=== PATIENT | female | born 1945 | race Caucasian/White ===

== ENCOUNTER 2018-04-24 10:27 | Inpatient (IN) ==
[2018-04-20 19:23] LABS: Appearance,Urine CLEAR; Bilirubin,Urine NEG (NEG); Color,Urine YELLOW; Glucose,Urine (UA) NEGATIVE (NEG); Leukocyte Esterase,Urine NEG /uL (NEG); Protein,Urine NEG (NEG); Specific Gravity,Urine 1.014 (1.000-1.035); Urine Blood NEG mg/dL (<0.03); Urobilinogen,Urine NEG (NEG)
[2018-04-20 19:29] LABS: Blood Urea Nitrogen 14 mg/dl (8-23)
[2018-04-20 19:35] LABS: Basophils # (Auto) 0 K/mcL (0.0-0.3); Basophils % (Auto) 0.4 % (0.0-2.0); Eosinophils # (Auto) 0.2 K/mcL (0.0-0.7); Eosinophils % (Auto) 3.3 % (0.0-7.0); Granulocytes % (Auto) 72.9 % (38.0-78.0); Lymphocytes # (Auto) 0.8 K/mcL (1.5-4.8); Lymphocytes % (Auto) 14.6 % (15.5-49.0); Mean Cell Volume 94.3 fL (80.0-100.0); Mean Corpuscular HGB Conc 32.9 g/dL (31.0-36.0); Monocytes # (Auto) 0.5 K/mcL (0.1-0.9); Monocytes % (Auto) 8.8 % (1.0-12.0); Platelet Count 270 K/mcL (140-440); RBC 4.11 M/mcL (4.00-5.20); Red Cell Distribution Width 14.3 % (11.5-14.5)
--- NOTE | 2018-04-21 09:05 | XRay Report ---
HISTORY: Preop for shoulder surgery and status post right upper lobectomy FINDINGS: Right lung is smaller than the left following a prior right upper lobectomy. There is loculated pleural fluid over the right apex and there is blunting of the right costophrenic sulcus which could be residual fluid or scar. There is mild parenchymal scarring around the right hilum and above the right diaphragm. No pneumonia or tumor are seen. The left lung is clear normally expanded. The heart size is normal. There are two metal anchors in the right humeral head following prior shoulder surgery. There has been no significant change since 03/07/18. IMPRESSION: Normal postsurgical changes in the right thorax with residual loculated pleural fluid at the apex and possibly the right costophrenic sulcus No acute abnormality has developed Interpreted and Authenticated by: Fred Potter 04/21/18
[~2018-04-24 10:27] MED LIST: ACETAMINOPHEN 500 MG TABLET PO SCH; CELECOXIB 200 MG CAPSULE PO SCH; PREGABALIN 75 MG CAPSULE PO SCH; ceFAZolin 1 GM VIAL IV SCH; oxyCODONE 10 MG TAB.ER.12H PO SCH
[2018-04-24] MEDS ORDERED: TRANEXAMIC ACID 1,000 MG/10 ML VIAL IV ONE (12:38)
[2018-04-24] MEDS ORDERED: SUCCINYLCHOLINE 20 MG/ML ML IV ONE (12:38)
[2018-04-24] MEDS ORDERED: LIDOCAINE HCL/PF 100 MG/5 ML SYRINGE IV ONE (12:38)
[2018-04-24] MEDS ORDERED: DEXAMETHASONE 10 MG/ML VIAL IV ONE (12:38)
[2018-04-24] MEDS ORDERED: PROPOFOL 200 MG/20 ML VIAL IV ONE (12:38)
[2018-04-24] MEDS ORDERED: MIDAZOLAM 5 MG/5 ML VIAL IV ONE (12:38)
[2018-04-24] MEDS ORDERED: KETAMINE 100 MG/ML ML IV ONE (12:38)
[2018-04-24] MEDS ORDERED: fentaNYL 250 MCG/5 ML VIAL IV ONE (12:38)
[2018-04-24] MEDS ORDERED: IPRATROPIUM/ALBUTEROL 3 ML AMPUL.NEB NEB ONE (14:16)
[2018-04-24] MEDS ORDERED: GENTAMICIN SULFATE 800 MG/20 ML VIAL IR ONE (15:06)
[2018-04-24] MEDS ORDERED: diphenhydrAMINE 50 MG/ML VIAL IV PRN (15:34)
[2018-04-24] MEDS ORDERED: IPRATROPIUM/ALBUTEROL 3 ML AMPUL.NEB NEB PRN (15:34)
[2018-04-24] MEDS ORDERED: METHOCARBAMOL 1,000 MG/10 ML VIAL IV PRN (15:34)
[2018-04-24] MEDS ORDERED: PROMETHAZINE 25 MG/ML VIAL IV PRN (15:34)
[2018-04-24] MEDS ORDERED: METOPROLOL TARTRATE 5 MG/5 ML VIAL IV PRN (15:34)
[2018-04-24] MEDS ORDERED: ATROPINE SULFATE 0.4 MG/ML VIAL IV PRN (15:34)
[2018-04-24] MEDS ORDERED: FLUMAZENIL 0.1 MG/ML ML IV PRN (15:34)
[2018-04-24] MEDS ORDERED: ePHEDrine 50 MG/ML AMPUL IV PRN (15:34)
[2018-04-24] MEDS ORDERED: MEPERIDINE 25 MG/ML SYRINGE IV PRN (15:34)
[2018-04-24] MEDS ORDERED: ONDANSETRON 4 MG/2 ML VIAL IV PRN ×2 (15:34→15:51)
[2018-04-24] MEDS ORDERED: NALOXONE HCL 0.4 MG/ML VIAL IV PRN (15:34)
[2018-04-24] MEDS ORDERED: LACTATED RINGERS 1,000 ML IV SCH (15:45)
[2018-04-24] MEDS ORDERED: FLEETS ADULT ENEMA PR PRN (15:51)
[2018-04-24] MEDS ORDERED: POLYETHYLENE GLYCOL 3350 17 GM PACKET PO PRN (15:51)
[2018-04-24] MEDS ORDERED: MAGNESIUM HYDROXIDE 30 ML ORAL.SUSP PO PRN (15:51)
[2018-04-24] MEDS ORDERED: TRANEXAMIC ACID 1,000 MG/10 ML VIAL IV SCH (15:51)
[2018-04-24] MEDS ORDERED: BISACODYL 10 MG SUPP.RECT PR PRN (15:51)
[2018-04-24] MEDS ORDERED: BENZOCAINE/MENTHOL 1 LOZENGE PO PRN (15:51)
--- NOTE | 2018-04-24 15:51 | Brief Operative Note ---
Date of procedure: 04/24/18 Pre-op diagnosis: left shoulder massive rct and djd Post-op diagnosis: same Procedure: left reverse tsa and bicep tenodesis Grafts/Implants: Yes Anesthesia: GETA Complications: none Surgeon: Adam Handy Instructional Manager: Theodore Gutierrez Estimated blood loss (cc): 100 Specimens Removed/Pathology: none sent Condition: stable Disposition: PACU
[2018-04-24] MEDS ORDERED: ALBUTEROL SULFATE 1 PUFF INHALER INH PRN (15:53)
[2018-04-24] MEDS: fentaNYL 100 MCG/2 ML VIAL IV PRN ×4 (16:34→17:12)
--- NOTE | 2018-04-24 16:34 | Operative Note ---
DATE OF OPERATION: 04/24/2018 PREOPERATIVE DIAGNOSES: Left shoulder rotator cuff arthropathy with massive rotator cuff tear and arthritis and biceps tendinopathy. POSTOPERATIVE DIAGNOSES: Left shoulder rotator cuff arthropathy with massive rotator cuff tear and arthritis and biceps tendinopathy. PROCEDURE: Left reverse total shoulder and biceps tenodesis. SURGEON: Adam Handy M.D. INTELLECTUAL PROPERTY COUNSEL: Theodore Gutierrez PA-C. ANESTHESIA: General LMA anesthesia by Iram Sykes CRNA. COMPLICATIONS: None. ESTIMATED BLOOD LOSS: About 100 mL. IMPLANTS: A size 7 stem, a cementless stem with distal cementing of the distal stem because of bone quality. Metaglene and a 32 mm glenosphere. DESCRIPTION OF PROCEDURE: The patient was brought to the operating room and put to sleep with general LMA anesthesia. Once asleep, the patient had the left arm sterilely prepped and draped in the usual sterile fashion, confirmed as the operative site with a timeout. Tranexamic acid and preop antibiotics were given. Once this had been accomplished, we proceeded with the left reverse total shoulder. After the time out been performed, confirming the left arm as the site both by consent form, x-rays and initials on the skin. Once all this was done, we then placed Ioban on the skin. She was reclined in a beach chair position and made a deltopectoral approach. This was about a 4.5 inch incision. This was dissected to the deltopectoral interval, which was retracted laterally with the cephalic vein. Identified the conjoined tendon, retracted medially after elevating it from the anterior capsule and then released the subscap muscle. This was tagged and retracted medially, and at this point we identified the biceps tendon which was released from its remnants and then sutured to a bony bed and pectoralis major muscle with two [id number] #2 Ethibond stitches. The patient tolerated this well. We released any excess tissue proximally. Once this has been secured, then we subluxed the humeral head anteriorly, released the capsule around the inferior portion of the ball, and then made our neck cut at the anatomic area. Using 20 degrees of retroversion we then placed a protective plate, and this was subluxed posteriorly. We then placed a retractor superiorly and a glenoid retractor posteriorly, a Cobra retractor anteriorly, and we performed a 360-degree capsular release and labral release with the remnants of the biceps tendon. We placed the pin fairly centrally for the Metaglene, and the Metaglene was positioned and a 32 mm glenosphere was tapped into place. The central screw was only 24 mm. Peripheral screws were 32, 24, and 24 with good purchase of all screws. The glenosphere was placed, and it covered the bone nicely. We irrigated thoroughly and made sure there was no soft tissue stopping any of the motion. We irrigated thoroughly and then prepared the humeral side, broaching up to the size and reaming the canal up to the size of 7. The 8 was too large. We broached with a broach for a size 7, and this seemed to fit very nicely. We had to countersink slightly to get the tension perfectly right which was accomplished, and the shoulder was stable through the full arc of motion. We irrigated thoroughly and then mixed cement with antibiotics, and this was placed distally in the humerus for distal fixation of the stem proximally. The stem was kept porous ingrowth into the stem. This was placed, a standard thickness poly that would have been trialed. The final implant was placed, and this was reduced without any complication. Here again we retested the stability of the shoulder, very stable throughout. We irrigated and did not repair the subscap just because the tightness of the shoulder would have complicated this. We irrigated thoroughly and closed the interval with #1 Stratafix, closed the fascial layer with #1 Stratafix and adhesive closure superficially. The patient was fitted and given a DonJoy sling at the end of the case. [email or web address] Job ID: [id number] Doc ID: [id number] Adam Handy MD
[2018-04-24] MEDS: HYDROmorphone 2 MG/ML VIAL IV PRN ×2 (16:40→20:00)
[2018-04-24] MEDS ORDERED: DICYCLOMINE 20 MG TABLET PO PRN (17:00)
[2018-04-24] MEDS: 0.45 % SODIUM CHLORIDE 1,000 ML IV SCH (17:57)
--- NOTE | 2018-04-24 19:16 | XRay Report ---
CLINICAL INFORMATION: Post-Op Total Shoulder COMPARISON: None. FINDINGS: Total shoulder prosthesis is anatomically aligned. No osseous abnormality. Soft issue swelling as expected IMPRESSION: Negative Interpreted and Authenticated by: Alvaro Portillo 04/24/18
[2018-04-24] MEDS: HYDROCODONE/APAP 7.5/325MG TABLET PO PRN (20:00)
[2018-04-24] MEDS ORDERED: FAMOTIDINE 20 MG TABLET PO SCH (21:00)
[2018-04-24] MEDS ORDERED: MELATONIN 3 MG TABLET PO PRN (21:00)
[2018-04-24] MEDS ORDERED: ATORVASTATIN 20 MG TABLET PO SCH (21:00)
[2018-04-24] MEDS ORDERED: TEMAZEPAM 15 MG CAPSULE PO PRN (21:00)
[2018-04-24] MEDS ORDERED: SENNOSIDES 1 TABLET PO SCH (21:00)
[2018-04-24] MEDS: DOCUSATE SODIUM 100 MG CAPSULE PO SCH (21:32)
[2018-04-24] MEDS: ceFAZolin 1 GM VIAL IV SCH (21:35)
[2018-04-24] MEDS: 0.9 % SODIUM CHLORIDE 10 ML SYRINGE IV SCH (21:36)
[2018-04-25] MEDS: 0.45 % SODIUM CHLORIDE 1,000 ML IV SCH (02:15)
[2018-04-25] MEDS: ACETAMINOPHEN 325 MG TABLET PO PRN ×2 (05:07→11:27)
[2018-04-25] MEDS: ceFAZolin 1 GM VIAL IV SCH (06:02)
[2018-04-25] MEDS: 0.9 % SODIUM CHLORIDE 10 ML SYRINGE IV SCH (06:03)
[2018-04-25] MEDS ORDERED: OMEPRAZOLE 20 MG CAPSULE PO SCH (07:30)
--- NOTE | 2018-04-25 07:48 | Orthopedic Progress Note ---
Subjective Patient information: Note initiated : 04/25/18 at 7:48 am Service Date, if different from initiated Date: [] Patient: Rachana Arevalo 72 y/o F admitted on 04/24/18 for Left Reverse Total Shoulder Arthroplasty with. Chief Complaint: [Pt is stable this morning on post operative day 1 without any significant concerns or complaints. Patients vital signs have remained stable. Patients dressing is dry and is grossly intact from a neur ovascular and motor standpoint. Patients 10 point ROS is otherwise negative. ] Objective Vital signs: Vital Signs Temp Pulse Resp BP Pulse Ox 04/25/18 06:45 98.3 F 106 H 16 106/64 95 04/25/18 04:02 97.8 F 104 H 16 109/65 95 04/24/18 23:15 98.1 F 115 H 16 123/72 94 04/24/18 21:22 113 H 16 133/71 95 04/24/18 20:24 101 H 9 L 111/66 96 04/24/18 19:24 101 H 111/68 96 04/24/18 18:54 101 H 105/65 96 04/24/18 18:24 102 H 118/75 97 04/24/18 18:09 101 H 116/69 95 04/24/18 17:54 109 H 140/71 95 04/24/18 17:39 104 H 143/79 97 04/24/18 17:26 112 H 148/75 97 04/24/18 17:20 97.5 F 112 H 12 148/75 97 04/24/18 16:56 98.3 F 103 H 16 122/58 99 04/24/18 16:41 97.6 F 98 H 12 141/59 100 04/24/18 16:26 97.3 F 99 H 19 197/86 100 04/24/18 16:21 91 H 13 179/85 100 04/24/18 16:16 87 11 L 168/82 100 04/24/18 16:11 97.3 F 86 13 151/73 100 04/24/18 10:27 97.4 F 108 H 16 128/73 95 Intake and Output 04/24/18 04/25/18 04/25/18 21:59 05:59 13:59 Intake Total 200 Output Total 101 250 Balance 99 -250 Intake: Oral 200 Output: Void Amount 100 250 # of times incontinent of urine 1 Other: Weight 136 lb 8 oz Intake & Output: Intake & Output 04/24/18 04/25/18 04/25/18 21:59 05:59 13:59 Intake Total 200 Output Total 101 250 Balance 99 -250 Weight 136 lb 8 oz Intake: Oral 200 Output: Void Amount 100 250 # of times incontinent of urine 1 Incision: Yes healing Incision clean and dry: Yes Dressing: Yes clean Neurological exam IM: Yes motor sensory intact, Yes neurovascular intact Extremities exam IM: Yes Foot pink and warm, Yes neurovascular intact - Labs CBC & BMP: 04/20/18 16:58 04/20/18 16:58 Labs: 04/20/18 16:58 Hgb 12.8 Hct 38.8 Assessment and Plan (1) History of reverse total replacement of left shoulder joint The patient has been educated regarding dressing care, Physical Therapy recomm endations, home exercises, restrictions, and follow up appointments. The patient has had all necessary DME prescribed. The patient has remained relatively stable during their hospital course. Leave Dermabond patch intact until followup Status: Acute
--- NOTE | 2018-04-25 07:51 | Discharge Summary ---
Ortho Discharge - TSA - Patient Instructions Diet: Regular Diet Activity: activity as tolerated, weight bearing as tolerated Total Shoulder Protocol: Leave immobilizer in place except for bathing and ROM. Abduction pillow. Continue to wear sling until seen by physician. Codman Pendulum : These exercises use momentum produced by your body to move your shoulder joint. Bend your knees and shift your weight to your front leg, then back, allowing your arm to swing in the same directions. Using the same technique, alternately shift your weight between your right and left legs, allowing your arm to swing from side to side. These exercises are also performed in counterclockwise and clockwise circular motions. Typically these exercises are performed several times per day, for a set number repetitions or minutes, such as 20 times in a row or 5 minutes at a time. Dressing Care: May shower in 2 days - Problem Maintenance (1) History of reverse total replacement of left shoulder joint Status: Acute - Follow Up Plan Follow Up Appointments: Theodore Gutierrez PA-C [Physician [employer]] - 05/09/18 10:10 am Disposition: Home, Self-Care Prognosis: Good Rehab Potential: Good I certify that the patient requires SNF services: No Overall status at discharge: patient is progressing back to baseline - Orders For Discharge Prescriptions: Docusate Sodium [Colace] 100 mg PO BID #60 capsule Hydrocodone/APAP 7.5/325Mg [[place] 7.5-325Mg] 1 - 2 tab PO Q4HP PRN #75 tab PRN Reason: Pain Level 3-6
[2018-04-25] MEDS: DOCUSATE SODIUM 100 MG CAPSULE PO SCH (08:16)
[2018-04-25] MEDS: HYDROCODONE/APAP 7.5/325MG TABLET PO PRN (08:16)
[2018-04-25] MEDS ORDERED: PARoxetine 20 MG TABLET PO SCH (09:00)
== END 2018-04-25 12:39 | disposition home or self-care (01) | DRG 483 ==
LOC: MEDSUR 10:27
PROVIDERS: ADMIT Orthopaedic Surgery; ATTEND Orthopaedic Surgery

== ENCOUNTER 2019-03-05 05:42 | Inpatient (IN) ==
[2019-02-28 18:25] LABS: Basophils # (Auto) 0 K/mcL (0.0-0.3); Basophils % (Auto) 0.3 % (0.0-2.0); Eosinophils # (Auto) 0.2 K/mcL (0.0-0.7); Eosinophils % (Auto) 2.4 % (0.0-7.0); Granulocytes % (Auto) 78.9 % (38.0-78.0); Hematocrit 38.3 % (36.0-48.0); Hemoglobin 12.6 g/dL (12.0-15.0); Lymphocytes # (Auto) 0.8 K/mcL (1.5-4.8); Mean Cell Volume 92.9 fL (80.0-100.0); Mean Corpuscular HGB Conc 32.8 g/dL (31.0-36.0); Mean Platelet Volume 6.4 fL (7.4-10.4); Monocytes # (Auto) 0.4 K/mcL (0.1-0.9); Monocytes % (Auto) 6.4 % (1.0-12.0); Platelet Count 323 K/mcL (140-440); RBC 4.12 M/mcL (4.00-5.20); Red Cell Distribution Width 15.3 % (11.5-14.5); WBC 6.6 K/mcL (4.5-11.0)
[2019-02-28 18:30] LABS: Blood Urea Nitrogen 9 mg/dl (8-23); Calcium 9.8 mg/dl (8.6-10.4); Carbon Dioxide 28 mmol/L (22-30); Chloride 100 mmol/L (96-108); Glomerular Filtration Rate 73; Glucose 95 mg/dL (70-105)
[2019-02-28 18:44] LABS: Appearance,Urine CLEAR; Bilirubin,Urine NEG (NEG); Color,Urine YELLOW; Culture Indicated,Urine NO; Glucose,Urine (UA) NEGATIVE (NEG); Ketones,Urine NEG (NEG); Leukocyte Esterase,Urine NEG /uL (NEG); Nitrate,Urine NEG (NEG); Protein,Urine NEG (NEG); Specific Gravity,Urine 1.014 (1.000-1.035); Urine Blood NEG mg/dL (<0.03); Urobilinogen,Urine NEG (NEG)
[~2019-03-05 05:42] MED LIST changes: -ACETAMINOPHEN 500 MG TABLET PO SCH; -CELECOXIB 200 MG CAPSULE PO SCH; +IPRATROPIUM/ALBUTEROL 3 ML AMPUL.NEB NEB PRN; -PREGABALIN 75 MG CAPSULE PO SCH; +SCOPOLAMINE 1 PATCH PATCH TOPICAL PRN; -ceFAZolin 1 GM VIAL IV SCH; -oxyCODONE 10 MG TAB.ER.12H PO SCH
[2019-03-05] MEDS ORDERED: oxyCODONE 10 MG TAB.ER.12H PO SCH (06:00)
[2019-03-05] MEDS ORDERED: ceFAZolin 2 GM in DEXTROSE 5% IN WATER 50 ML IV SCH (06:00)
[2019-03-05] MEDS ORDERED: CELECOXIB 200 MG CAPSULE PO SCH (06:00)
[2019-03-05] MEDS ORDERED: GABAPENTIN 300 MG CAPSULE PO SCH (06:00)
[2019-03-05] MEDS ORDERED: ACETAMINOPHEN 500 MG TABLET PO SCH (06:00)
[2019-03-05] MEDS ORDERED: TRANEXAMIC ACID 1,000 MG/10 ML VIAL IV ONE (09:20)
[2019-03-05] MEDS ORDERED: PHENYLEPHRINE 10 MG/ML VIAL IV ONE (09:20)
[2019-03-05] MEDS ORDERED: ROCURONIUM 10 MG/ML ML IV ONE (09:20)
[2019-03-05] MEDS ORDERED: LIDOCAINE HCL/PF 100 MG/5 ML SYRINGE IV ONE (09:20)
[2019-03-05] MEDS ORDERED: DEXAMETHASONE 10 MG/ML VIAL IV ONE (09:20)
[2019-03-05] MEDS ORDERED: fentaNYL 250 MCG/5 ML VIAL IV ONE (09:20)
[2019-03-05] MEDS ORDERED: ONDANSETRON 4 MG/2 ML VIAL IV ONE (09:20)
[2019-03-05] MEDS ORDERED: PROPOFOL 200 MG/20 ML VIAL IV ONE (09:20)
[2019-03-05] MEDS ORDERED: MIDAZOLAM 2 MG/2 ML VIAL IV ONE (09:20)
[2019-03-05] MEDS ORDERED: GENTAMICIN SULFATE 800 MG/20 ML VIAL IR ONE (09:44)
[2019-03-05] MEDS ORDERED: BUPIVACAINE W/EPI 0.5% 50 ML VIAL IJ ONE (09:44)
[2019-03-05] MEDS ORDERED: HYDROmorphone 2 MG/ML VIAL IV PRN ×2 (10:14→10:23)
[2019-03-05] MEDS ORDERED: FLUMAZENIL 0.1 MG/ML ML IV PRN (10:14)
[2019-03-05] MEDS ORDERED: PROMETHAZINE 25 MG/ML VIAL IV PRN (10:14)
[2019-03-05] MEDS ORDERED: MEPERIDINE 25 MG/ML SYRINGE IV PRN (10:14)
[2019-03-05] MEDS ORDERED: NALOXONE HCL 0.4 MG/ML VIAL IV PRN (10:14)
[2019-03-05] MEDS ORDERED: METOPROLOL TARTRATE 5 MG/5 ML VIAL IV PRN (10:14)
[2019-03-05] MEDS ORDERED: ONDANSETRON 4 MG/2 ML VIAL IV PRN ×2 (10:14→10:23)
[2019-03-05] MEDS ORDERED: diphenhydrAMINE 50 MG/ML VIAL IV PRN (10:14)
[2019-03-05] MEDS ORDERED: ePHEDrine 50 MG/ML AMPUL IV PRN (10:14)
[2019-03-05] MEDS ORDERED: ATROPINE SULFATE 0.4 MG/ML VIAL IV PRN (10:14)
[2019-03-05] MEDS ORDERED: IPRATROPIUM/ALBUTEROL 3 ML AMPUL.NEB NEB PRN (10:14)
[2019-03-05] MEDS ORDERED: METHOCARBAMOL 1,000 MG/10 ML VIAL IV PRN (10:14)
[2019-03-05] MEDS ORDERED: LACTATED RINGERS 1,000 ML IV SCH (10:15)
[2019-03-05] MEDS ORDERED: MAGNESIUM HYDROXIDE 30 ML ORAL.SUSP PO PRN (10:23)
[2019-03-05] MEDS ORDERED: FLEETS ADULT ENEMA PR PRN (10:23)
[2019-03-05] MEDS ORDERED: ACETAMINOPHEN 325 MG TABLET PO PRN (10:23)
[2019-03-05] MEDS ORDERED: BISACODYL 10 MG SUPP.RECT PR PRN (10:23)
[2019-03-05] MEDS ORDERED: TRANEXAMIC ACID 1,000 MG/10 ML VIAL IV SCH (10:23)
[2019-03-05] MEDS ORDERED: POLYETHYLENE GLYCOL 3350 17 GM PACKET PO PRN (10:23)
[2019-03-05] MEDS ORDERED: KETOROLAC 15 MG/ML VIAL IV PRN (10:23)
[2019-03-05] MEDS ORDERED: BENZOCAINE/MENTHOL 1 LOZENGE PO PRN (10:23)
[2019-03-05] MEDS ORDERED: ALBUTEROL SULFATE 1 PUFF INHALER INH PRN (10:27)
[2019-03-05] MEDS ORDERED: DICYCLOMINE 20 MG TABLET PO PRN (10:27)
--- NOTE | 2019-03-05 10:31 | Brief Operative Note ---
Date of procedure: 03/05/19 Pre-op diagnosis: Right shoulder djd and bicep tear Post-op diagnosis: same Procedure: Right reverse tsa and bicep tenodesis Grafts/Implants: Yes Anesthesia: GETA Findings: none Surgeon: Adam Handy [employer] Work Supervisor: Theodore Gutierrez Estimated blood loss (cc): 50 Specimens Removed/Pathology: none sent Condition: stable Disposition: PACU
--- NOTE | 2019-03-05 10:47 | Discharge Summary ---
Ortho Discharge - TSA - Patient Instructions Diet: Regular Diet Activity: activity as tolerated, weight bearing as tolerated Total Shoulder Protocol: Leave immobilizer in place except for bathing and ROM. Abduction pillow. Continue to wear sling until seen by physician. Codman Pendulum : These exercises use momentum produced by your body to move your shoulder joint. Bend your knees and shift your weight to your front leg, then back, allowing your arm to swing in the same directions. Using the same technique, alternately shift your weight between your right and left legs, allowing your arm to swing from side to side. These exercises are also performed in counterclockwise and clockwise circular motions. Typically these exercises are performed several times per day, for a set number repetitions or minutes, such as 20 times in a row or 5 minutes at a time. Dressing Care: May shower in 2 days - Follow Up Plan Follow Up Appointments: Theodore Gutierrez PA-C [Physician [place] [employer]] - 03/20/19 10:00 am () Disposition: Home, Self-Care Prognosis: Good Rehab Potential: Good I certify that the patient requires SNF services: No Overall status at discharge: patient is progressing back to baseline - Orders For Discharge Prescriptions: Docusate Sodium [Colace] 100 mg PO BID #60 cap Transmission Status: Pending to [id number] oxyCODONE/APAP [Percocet 5-325 mg] 1 - 2 tab PO Q4HP PRN #75 tab PRN Reason: Pain Level 3-6 Prescription Printed
[2019-03-05] MEDS: fentaNYL 100 MCG/2 ML VIAL IV PRN ×3 (10:59→11:10)
--- NOTE | 2019-03-05 11:00 | Operative Note ---
DATE OF OPERATION: 03/05/2019 PREOPERATIVE DIAGNOSES: Right shoulder rotator cuff arthropathy and biceps tendinopathy. POSTOPERATIVE DIAGNOSIS: Right shoulder rotator cuff arthropathy and biceps tendinopathy. PROCEDURE: Right reverse total shoulder and biceps tenodesis. SURGEON: Adam Handy M.D. FOAM CASTER: Theodore Gutierrez PA-C. The PA's assistance was required for the safe and efficient completion of the entire case. This provider's expertise and technical skill were required throughout the case. The PA assisted with preoperative coordination, intraoperative retraction, wound closure, dressing and splint application, as well as postoperative documentation and care coordination. ANESTHESIA: General LMA anesthesia. ESTIMATED BLOOD LOSS: About 50 mL. COMPLICATIONS: None. IMPLANTS: A size 7 cementless stem with a standard-thickness poly, as well as a 36 mm glenosphere and a metaglene with four screws, size per nurse's note. DESCRIPTION OF PROCEDURE: The patient was brought to the operating room and put to sleep with general LMA anesthesia. Once asleep, the patient had the right shoulder sterilely prepped and draped in the usual sterile fashion. A timeout was performed. We confirmed this as the operative site by initials, consent form, and x-rays. Once done, we performed a deltopectoral approach. The deltoid was retracted laterally with the cephalic vein. A deltoid retractor was used. We then retracted medially the conjoined tendon, and we then released the subscap. At this point also, we identified the biceps tendon with tendinopathy, which was then released and then repaired to the pec major muscle and to the bony surface with a #2 FiberWire. Once secure, we then released the subscap, as well as subluxed the humeral head. Once this was done, we then made the surgical neck cut using the alignment guide with 20 degrees of retroversion. Once done, we then removed the ball and then evaluated the cuff. There was some rotator cuff still intact. At this point, we removed two anchors. Hardware removal was accomplished using a rongeur. Once this was removed, we irrigated thoroughly and placed a protective plate. The humeral shaft was subluxed posteriorly. We performed a 360-degree capsular release around the glenoid and then placed a central pin in the glenoid at 10 degrees of inclination. This was reamed up to the size 36 mm, trying to obtain bleeding bone on the 50% inferiorly. The metaglene was placed with a 24 mm central screw, as well as three surrounding screws which measured 20, 24 and 16. We irrigated and placed a 36 mm glenosphere with 2 mm of offset. This was tapped into place. We then broached up on the humeral side. We trialed the components which fit very nicely. We took the arm through range of motion which confirmed position. We irrigated thoroughly and then we actually placed a small amount of cement on the end of the stem to help secure this because of the softness of the bone. This was set into place at 20 degrees of retroversion and then a standard-thickness poly was placed on the top and punched into place. We then reduced the humeral head into place which was very stable. We irrigated and closed the deltopectoral interval with #1 Vicryl and closed the skin with 2-0 Vicryl and 3-0 Monocryl. The patient tolerated this well without complication. RBH:uzma Job ID: [id number] Doc ID: [id number] Adam Handy MD
--- NOTE | 2019-03-05 11:28 | XRay Report ---
CLINICAL INFORMATION: Postsurgical follow-up TECHNIQUE: AP and Y views of the right shoulder COMPARISON: None. FINDINGS: Status post right reverse shoulder arthroplasty. Alignment is anatomic. IMPRESSION: Right reverse shoulder arthroplasty Interpreted and Authenticated by: Alvaro Palacios 03/05/19
[2019-03-05] MEDS: LACTATED RINGERS 1,000 ML IV SCH ×3 (12:06→20:55)
[2019-03-05] MEDS: oxyCODONE/APAP 5/325MG TABLET PO PRN ×3 (13:29→20:56)
[2019-03-05] MEDS: 0.9 % SODIUM CHLORIDE 10 ML SYRINGE IV SCH ×2 (13:33→22:18)
[2019-03-05] MEDS: ceFAZolin 1 GM VIAL IV SCH (17:42)
[2019-03-05] MEDS: DOCUSATE SODIUM 100 MG CAPSULE PO SCH (20:56)
[2019-03-05] MEDS ORDERED: DOCUSATE SODIUM 100 MG CAPSULE PO SCH (21:00)
[2019-03-05] MEDS ORDERED: ATORVASTATIN 20 MG TABLET PO SCH (21:00)
[2019-03-05] MEDS ORDERED: TEMAZEPAM 15 MG CAPSULE PO PRN (21:00)
[2019-03-05] MEDS ORDERED: FAMOTIDINE 20 MG TABLET PO SCH (21:00)
[2019-03-05] MEDS ORDERED: SENNOSIDES 1 TABLET PO SCH (21:00)
[2019-03-06] MEDS: ceFAZolin 1 GM VIAL IV SCH (00:35)
[2019-03-06] MEDS: 0.9 % SODIUM CHLORIDE 10 ML SYRINGE IV SCH (04:18)
[2019-03-06] MEDS: oxyCODONE/APAP 5/325MG TABLET PO PRN ×2 (05:05→06:32)
[2019-03-06] MEDS: LACTATED RINGERS 1,000 ML IV SCH (05:06)
[2019-03-06] MEDS ORDERED: OMEPRAZOLE 20 MG CAPSULE PO SCH (07:30)
--- NOTE | 2019-03-06 07:39 | Orthopedic Progress Note ---
Subjective Patient information: Note initiated : 03/06/19 at 7:38 am Service Date, if different from initiated Date: [] Patient: Rachana Arevalo 73 y/o F admitted on 03/05/19 for Right Reverse Total Shoulder Arthroplasty . Chief Complaint: [Pt is stable this morning on post operative day 1 without any significant concerns or complaints. Patients vital signs have remained stable. Patients dressing is dry and is grossly intact from a neurova scular and motor standpoint. Patients 10 point ROS is otherwise negative. ] Objective Vital signs: Vital Signs Temp Pulse Resp BP Pulse Ox 03/06/19 03:57 97.4 F 91 H 18 119/69 98 03/05/19 23:51 98.2 F 94 H 20 113/66 95 03/05/19 20:00 20 03/05/19 18:56 98.1 F 102 H 20 109/67 96 03/05/19 18:00 103 H 03/05/19 16:00 98.0 F 101 H 18 106/57 97 03/05/19 14:30 106 H 03/05/19 14:15 98.9 F 110 H 18 113/66 96 03/05/19 13:15 106 H 16 119/64 96 03/05/19 12:45 114 H 16 122/65 96 03/05/19 12:15 117 H 16 146/72 96 03/05/19 12:00 118 H 16 143/71 96 03/05/19 11:45 121 H 16 157/79 97 03/05/19 11:30 97.0 F 122 H 16 152/78 91 03/05/19 11:21 98.6 F 121 H 15 149/67 95 03/05/19 11:05 97.8 F 122 H 17 156/66 87 L 03/05/19 11:00 120 H 23 H 158/90 100 03/05/19 10:55 110 H 19 172/77 100 03/05/19 10:50 108 H 19 171/77 100 03/05/19 10:45 108 H 16 156/74 100 03/05/19 10:43 97.2 F 100 H 11 L 147/67 98 Intake and Output 03/05/19 03/06/19 03/06/19 21:59 05:59 13:59 Intake Total 1037 100 Output Total 451 Balance 1037 -351 Intake: IV 597 Lactated Ringers 1,000 ml @ 100 597 mls/hr IV .Q10H KEELEY Rx#: [id number] Oral 440 100 Output: Void Amount 450 # of times incontinent of urine 1 Other: Meal Dinner Percent of Meal Consumed 25% Feeding Ability Assist with Tray Set Up Urine Appearance Clear Urine Color Bright Yellow Urine Odor Normal Weight 140 lb 1.6 oz Intake & Output: Intake & Output 03/05/19 03/06/19 03/06/19 21:59 05:59 13:59 Intake Total 1037 100 Output Total 451 Balance 1037 -351 Weight 140 lb 1.6 oz Intake: IV 597 Lactated Ringers 1,000 ml @ 100 597 mls/hr IV .Q10H KEELEY Rx#: [id number] Oral 440 100 Output: Void Amount 450 # of times incontinent of urine 1 Other: Meal Dinner Percent of Meal Consumed 25% Feeding Ability Assist with Tray Set Up Urine Appearance Clear Urine Color Bright Yellow Urine Odor Normal Incision: Yes healing Incision clean and dry: Yes Dressing: Yes clean Weight bearing status: full Neurological exam IM: Yes motor sensory intact, Yes neurovascular intact Extremities exam IM: Yes Foot pink and warm, Yes neurovascular intact - Labs CBC & BMP: 02/28/19 15:33 02/28/19 15:33 Labs: 02/28/19 15:33 Hgb 12.6 Hct 38.3 Assessment and Plan (1) History of reverse total replacement of left shoulder joint The patient has been educated regarding dressing care, Physical Therapy recommendations, home exercises, restrictions, and follow up appointments. The patient has had all necessary DME prescribed. The patient has remained relatively stable during their hospital course. Leave Dermabond patch intact until followup Status: Acute
[2019-03-06] MEDS: VITAMIN D3 1,000 UNIT TABLET PO SCH ×2 (08:25→08:26)
[2019-03-06] MEDS: DOCUSATE SODIUM 100 MG CAPSULE PO SCH (08:26)
[2019-03-06] MEDS ORDERED: MAGNESIUM OXIDE 400 MG TABLET PO SCH (09:00)
[2019-03-06] MEDS ORDERED: GABAPENTIN 300 MG CAPSULE PO SCH (09:00)
[2019-03-06] MEDS ORDERED: CALCIUM (OYSTER SHELL) 500 MG TABLET PO SCH (09:00)
[2019-03-06] MEDS ORDERED: PARoxetine 20 MG TABLET PO SCH (09:00)
[2019-03-06] MEDS ORDERED: MULTIVIT,THER IRON,CA,FA & MIN 1 TABLET PO SCH (09:00)
== END 2019-03-06 11:25 | disposition home or self-care (01) | DRG 483 ==
LOC: MEDSUR 05:42
PROVIDERS: ADMIT Orthopaedic Surgery; ATTEND Orthopaedic Surgery